=== PATIENT | female | born 1965 | race Caucasian/White ===

== ENCOUNTER 2024-11-11 05:13 | Emergency (ER) | payer MEDICARE, MEDICAID ==
[~2024-11-11] VITALS: Ht 160 cm; Wt 99.4 kg
[~2024-11-11 05:13] MED LIST: AMLO-708 PO; LOSA100T58 PO; METO100T14 PO; ONDA-245 PO; PROM25TA14 PO
--- NOTE | 2024-11-11 06:11 | Physician Documentation ---
History of Present Illness ~ Chief Complaint: G-Tube Problems Stated Complaint: POST OP COMPLICATION Time Seen by MD: 06:11 Primary Medical Doctor: Sarah Source: patient, family (son) Mode of Arrival: POV, Wheelchair HPI p/w leakage around g tube site. Began yesterday evening, also pruritic. No fevers. No abdominal pain. Medication Reconciliation Allergies: Coded Allergies: NSAIDS (Non-Steroidal Anti-Inflamma (Unverified Allergy, Unknown, 11/11/24) Penicillins (Unverified Allergy, Unknown, 11/11/24) albuterol (Verified Adverse Reaction, Intermediate, 11/11/24) COUGH Scheduled Amlodipine Besylate (Amlodipine Besylate), 1 TAB PO DAILY, (Reported) Losartan Potassium (Losartan Potassium), 1 TAB PO DAILY, (Reported) Metoprolol Tartrate (Metoprolol Tartrate), 25 MG PO DAILY, (Reported) Scheduled PRN Ondansetron 8mg ODT (Ondansetron Odt), 1 TAB PO TID PRN for nausea, (Reported) Promethazine HCl (Promethazine HCl), 1 TAB PO Q8H PRN for nausea/vomiting, (Reported) Past Medical History Past Medical History: Hypertension, UTI, Thyroid (unspecified), Depression Past Surgical History: noncontributory Patient History: Patient reports no known family medical history. Alcohol Use: None Drug Use: none Review of Systems All Other Systems at this time: Reviewed and Negative Physical Exam Vital Signs: Temperature: 98.2, Source: Oral, Heart Rate: 97, Respiratory Rate: 18, BP: 117/79, Pulse Oximetry: 98, Weight: 99.360 Oxygen Flow Rate: 0 Physical Exam well appearing nad abdomen soft non tender, intact g tube site with parastomal leak. No erythema. no purulent discharge. Progress Results/Orders Results/Orders Orders - GIGI SHIPLEY MD Abdomen,Single View(Kub) (11/11/24 ) Completed Orders - GIGI SHIPLEY MD Diatr Meglu/Diatr Sod Oral Brittani (Gastrogr (11/11/24 06:30) Abdomen,Single View(Kub) (11/11/24 ) Diatr Meglu/Diatrizoate 30ml (Gastrograf (11/11/24 06:30) Medications Received in ER Medications (Trade) Dose Ordered Sig/Diogo Route PRN Reason Start Time Stop Time Status Last Admin Dose Admin (Gastrografin 66-10 oral solution) 30 ml ONCE ONCE PO 11/11/24 06:30 11/11/24 06:31 DC 11/11/24 06:50 30 ML Vital Signs 11/11/24 11/11/24 11/11/24 11/11/24 05:17 05:44 06:06 06:59 Temp 98.2 Pulse 104 97 102 Resp 19 18 18 16 B/P (MAP) 120/86 117/79 (92) 144/98 (113) Pulse Ox 96 98 98 O2 Flow Rate 0 0 EKG/XRAY/CT/US/VASC/MRI Abdominal X-Ray : Additional Comment I independently interpreted KUB, contrast in stomach, no extraluminal contrast, no free air Medical Decision Making Additional info obtained from: old records Findings d/c summary 11/07/24 Hospital Course Patient underwent robotic assisted, laparoscopic gastrostomy tube placement by Dr. Davis without complication. Patient was started on feeding tube which she was unable to tolerate well initially. CT abdomen confirmed satisfactory placement of gastrostomy tube. Patient was gradually resumed on tube feeding and was able to tolerate then. Patient was treated with supportive care. Patient did not experience further complications throughout the entire hospital stay. Patient was seen and examined on the day of discharge. On day of discharge, vss and labs unremarkable. Patient is tolerating tube feeding well. All labs, diagnostic workups, discharge plan discussed with patient in details during visit before discharge. All questions and concerns answered to the best of my professional knowledge. We are unable to get approval for tube feed until [facility] and patient was adamantly expressing willingness to leave AMA today if she cannot be discharged. Her oncologist Dr. Ritesh Apodaca at [facility] oncology was contacted on the day of discharge and confirmed that he will order additional tube feed on a follow Saturday. Patient is in possession of supply at home until then. Patient is to be discharged with and to follow-up with PCP and her oncologist Dr. Apodaca within 2 weeks. Patient is instructed to follow-up with her oncologist as scheduled for continuous radiation treatment. Differential Dx:Considerations: Include: Cellulitis, Ostomy site inflammation, Tube dislodgement, Tube malfunction Departure Disposition: 01 HOME / SELF CARE / HOMELESS Impression: Primary Impression: Peristomal leakage from gastrostomy Additional Impression Text Continue to wash the skin once daily with soap and warm water. Change the dressing when saturated. Apply desitin or a zinc based cream to the affected area 3 times daily. Follow up with your surgeon Dr. Davis for recheck. Referrals: NO PRIMARY CARE PROVIDER (PCP) Signature Scribe Signature: na Attestation: GIGI Rey MD November 11, 2024 06:11
[2024-11-11] MEDS ORDERED: diatrozoate meglu/diatrozoate sod (37% iodine) 120ML oral solution PO ONE (06:30)
[2024-11-11] MEDS: diatr meglu/diatrizoate 30ml oral sol.-(3 dose) bottle PO ONE (06:50)
[2024-11-11] MEDS ORDERED: KEF125L PO (07:22)
--- NOTE | 2024-11-11 07:29 | RADIOLOGY REPORT ---
EXAM: XR Abdomen, 1 View CLINICAL INDICATION: Reason TECHNIQUE: Frontal supine view of the abdomen/pelvis. COMPARISON: None FINDINGS: GASTROINTESTINAL TRACT: Unremarkable. No dilation. BONES/JOINTS: Unremarkable. No acute fracture. TUBES, LINES AND DEVICES: No gastric outlet obstruction. No contrast extravasation. G-tube appear s to be proper position. OTHER FINDINGS: . IMPRESSION: No gastric outlet obstruction. No contrast extravasation. G-tube appears to be proper position.
[2024-11-11 07:32] VITALS: BP 116/85; PULSE 97; RESP 18; TEMP 98.2; O2SAT 100
== END 2024-11-11 07:30 | disposition home or self-care (01) ==
LOC: ER 05:14
DX: K94.23 Gastrostomy malfunction (principal); I10 Essential (primary) hypertension; Z88.0 Allergy status to penicillin; Z88.6 Allergy status to analgesic agent; F32.A Depression, unspecified
CPT/HCPCS: 74018; 99283; A6410; Q9963